=== PATIENT | female | born 1990 | race African-American/Black ===

== ENCOUNTER 2017-11-03 20:11 | Emergency (ER) | payer MEDICAID ==
[~2017-11-03] VITALS: Ht 271.8 cm; Wt 109.8 kg
[2017-11-03 20:27] VITALS: Ht 271.8 cm; Wt 109.8 kg
[2017-11-03 23:40] LABS: BASOPHIL % 0.4 % (0-2); PLATELET COUNT 247 x10^3mcL (130-400); RED CELL DISTRIBUTION WIDTH 14.4 % (11.5-14.5)
[2017-11-03 23:50] LABS: CALCIUM 8.9 mg/dL (8.5-10.1); CARBON DIOXIDE 29.3 mmol/L (21-32); CHLORIDE SERUM 105 mmol/L (98-107); CREATININE SERUM 0.6 mg/dL (0.6-1.0); GFR1 > 60 mL/min; GLUCOSE SERUM 99 mg/dL (74-106); POTASSIUM SERUM 3.4 mmol/L (3.5-5.1); SODIUM SERUM 142 mmol/L (136-145)
[2017-11-03 23:54] LABS: ALBUMIN 3.5 g/dL (3.4-5.0); ALKALINE PHOSPHATASE 71 U/L (46-116); ALT/SGPT 21 U/L (14-59); AMYLASE 55 U/L (25-115); AST/SGOT 17 U/L (15-37); BILIRUBIN TOTAL 0.48 mg/dL (0.20-1.00); LIPASE 96 IU/L (73-393); TOTAL PROTEIN, SERUM 7.6 g/dL (6.4-8.2)
[2017-11-04 01:36] VITALS: BP 140/78
== END 2017-11-04 01:36 | disposition home or self-care (01) ==
LOC: ED 20:11 → EDBEDREQSVC 11-04 00:19 → ED 11-04 01:36
PROVIDERS: Emergency Medicine
DX: N83.202 Unspecified ovarian cyst, left side (principal)
CPT/HCPCS: 36415; 83880; 84439; Q0092

== ENCOUNTER 2018-10-07 21:15 | Emergency (ER) | payer OTHER ==
[~2018-10-07] VITALS: Ht 160 cm; Wt 111.1 kg
[2018-10-07 21:20] VITALS: Ht 160 cm; Wt 111.1 kg
[2018-10-08 00:51] VITALS: BP 136/88
== END 2018-10-08 00:50 | disposition home or self-care (01) ==
LOC: ED 21:15
DX: J02.9 Acute pharyngitis, unspecified (principal)
CPT/HCPCS: J1100; J1885

== ENCOUNTER 2019-07-14 08:29 | Emergency (ER) | payer OTHER ==
[~2019-07-14] VITALS: Ht 162.6 cm; Wt 114.3 kg
[2019-07-14 08:32] VITALS: Ht 162.6 cm; Wt 114.3 kg
[2019-07-14 11:02] VITALS: BP 130/78
== END 2019-07-14 11:02 | disposition home or self-care (01) ==
LOC: ED 08:29
DX: K29.70 Gastritis, unspecified, without bleeding (principal)
CPT/HCPCS: J1885

== ENCOUNTER 2020-07-29 08:26 | Emergency (ER) | payer OTHER ==
[~2020-07-29] VITALS: Ht 162.6 cm; Wt 119.3 kg
[2020-07-29 08:32] VITALS: Ht 162.6 cm; Wt 119.3 kg
[2020-07-29 09:16] VITALS: BP 137/78
== END 2020-07-29 09:16 | disposition home or self-care (01) ==
LOC: ED 08:26
DX: T78.3XXA Angioneurotic edema, initial encounter (principal)
CPT/HCPCS: J7512